=== PATIENT | female | born 1980 | race Caucasian/White ===

== ENCOUNTER 2020-03-22 06:42 | Emergency (ER) | payer OTHER ==
[~2020-03-22] VITALS: Ht 165.1 cm; Wt 79.5 kg
[2020-03-22] MEDS ORDERED: ONDANSETRON HCL 4MG/2ML INJ IV STA (06:55)
[2020-03-22] MEDS ORDERED: SODIUM CHLORIDE 0.9% 1,000 ML IV ONE (07:00)
[2020-03-22 07:30] LABS: BASOPHILS % 0.9 % (0.0-2.0); HEMATOCRIT. 33.5 % (36.0-48.0); HEMOGLOBIN. 10.1 g/dL (12.0-16.0); LYMPHOCYTES % 16.9 % (20.0-50.0); MEAN CORPUSCULAR VOLUME 62.8 fL (81.0-99.0); MEAN PLATELET VOLUME 7.9 fl (7.4-10.4); NEUTROPHILS % 74.2 % (40.0-76.0); PLATELET 414 x1000/uL (130-400); RED BLOOD CELL COUNT 5.33 mill/uL (4.2-5.4); RED CELL DISTRIBUTION WIDTH 18.5 % (11.6-14.6)
[2020-03-22 07:51] LABS: CHLORIDE 107 mEq/L (98-107)
[2020-03-22 08:16] LABS: PLATELET ESTIMATE SLIGHTLY INCREASED
[2020-03-22 08:56] LABS: HCG SCREEN NEGATIVE
[2020-03-22] MEDS ORDERED: ONDA4TAB5 MT (10:26)
[2020-03-22] MEDS ORDERED: IBUP-2030 MT (10:27)
[2020-03-22] MEDS ORDERED: KETOROLAC 30MG/ML VIAL IV ONE (10:30)
[2020-03-22 12:07] VITALS: BP 105/67
== END 2020-03-22 11:59 | disposition home or self-care (01) ==
LOC: ER 06:42
DX: R42 Dizziness and giddiness (principal); R11.2 Nausea with vomiting, unspecified
CPT/HCPCS: 36415; 71045; 80053; 83880; 84484; 84703; 85025; 93005; 96361; 96374; 96375; 99285; J1885; J2405; J7030